=== PATIENT | male | born 1985 | race African-American/Black ===

== ENCOUNTER 2018-04-01 12:14 | Emergency (ER) | payer OTHER ==
[~2018-04-01] VITALS: Ht 182.9 cm; Wt 77.1 kg
[~2018-04-01 12:14] MED LIST: ACYCLOVIR 200200 MG PO; LOTEMAX5 ML OP; NOHOMEMEDICATIONS; PREDNISONE 20 M20 M1 PO; ROBAXIN 750 MG750 M1 PO; ULTRAM 50MG TAB50 MG PO
[2018-04-01 12:57] LABS: ABSOLUTE EOSINOPHILS 0.2 thou/uL (0.0-0.7); ABSOLUTE LYMPHOCYTES 2.2 thou/uL (0.8-5.3); ABSOLUTE MONOCYTES 0.9 thou/uL (0.0-1.2); ABSOLUTE NEUTROPHILS 10.4 thou/uL (1.6-8.1); BASOPHILS 0.4 %; EOSINOPHILS 1.2 %; HEMATOCRIT 36.2 % (42.0-52.0); LYMPHOCYTES 15.9 %; MCH 28.9 pg (26.0-34.0); MCHC 33.1 g/dL (28.0-37.0); MCV 87.2 fL (80.0-100.0); MONOCYTES 6.4 %; MPV 6.3 fl. (7.2-11.1); NUCLEATED RBCS 0 /100WBC; PLATELET COUNT* 286 thou/uL (150-400); POLYS 76.1 %; RBC 4.15 mil/uL (4.50-6.00); RDW-CV 13.4 % (10.5-14.5); WBC 13.6 thou/uL (4.0-11.0)
[2018-04-01] MEDS ORDERED: HYDROCODON-ACE1 EAC7 PO (13:34)
[2018-04-01] MEDS ORDERED: AUGMENTIN 500-1 EACH PO (13:34)
[2018-04-01 13:43] VITALS: BP 134/80
== END 2018-04-01 13:45 | disposition home or self-care (01) ==
LOC: M.ERS 12:14
PROVIDERS: Emergency Medicine
DX: H66.92 Otitis media, unspecified, left ear (principal); J45.909 Unspecified asthma, uncomplicated; F17.210 Nicotine dependence, cigarettes, uncomplicated

== ENCOUNTER 2018-11-25 07:35 | Inpatient (IN) | payer OTHER ==
[~2018-11-25] VITALS: Ht 182.9 cm; Wt 76.2 kg
[~2018-11-25 07:35] MED LIST changes: +AUGMENTIN 500-1 EACH PO; +HYDROCODON-ACE1 EAC7 PO
[2018-11-25 07:39] VITALS: BP 104/60
[2018-11-25] MEDS ORDERED: HIV MED (07:43)
[2018-11-25 08:11] LABS: ABSOLUTE LYMPHOCYTES 1.2 thou/uL (0.8-5.3); ABSOLUTE MONOCYTES 0.7 thou/uL (0.0-1.2); ABSOLUTE NEUTROPHILS 6.6 thou/uL (1.6-8.1); BASOPHILS 0.2 %; EOSINOPHILS 0.2 %; HEMATOCRIT 30.8 % (42.0-52.0); HEMOGLOBIN 10.4 gm/dL (14.0-18.0); LYMPHOCYTES 14.6 %; MCH 28.1 pg (26.0-34.0); MCHC 33.9 g/dL (28.0-37.0); MPV 7.2 fl. (7.2-11.1); NUCLEATED RBCS 0 /100WBC; PLATELET COUNT* 266 thou/uL (150-400); RBC 3.71 mil/uL (4.50-6.00); RDW-CV 14.1 % (10.5-14.5); WBC 8.6 thou/uL (4.0-11.0)
[2018-11-25 08:20] LABS: ANION GAP 12 mmol/L (7-16); BUN 31 mg/dL (7-18); CALCIUM 8.2 mg/dL (8.5-10.1); CHLORIDE 95 mmol/L (98-107); CO2 22 mmol/L (21-32); CREATININE 0.7 mg/dL (0.6-1.3); GLUCOSE 115 mg/dL (70-99); POTASSIUM 4.3 mmol/L (3.5-5.1); SODIUM 129 mmol/L (136-145)
[2018-11-25 08:21] LABS: PROTIME 10.7 Seconds (9.20-11.50)
[2018-11-25 08:30] LABS: ALBUMIN 2.1 g/dL (3.4-5.0); ALKALINE PHOSPHATASE 48 U/L (46-116); LIPASE 178 U/L (73-393); NT-PRO BRAIN NAT PEPTIDE 337 pg/mL (<300); SGOT 15 U/L (15-37); SGPT 13 U/L (30-65); TOTAL BILIRUBIN 0.6 mg/dL (<0.1-1.0); TOTAL PROTEIN 8.4 g/dL (6.4-8.2); TROPONIN-I LEVEL <0.06 ng/mL (<0.06)
[2018-11-25 08:37] LABS: INFLUENZA A ANTIGEN None Detected (None Detect); INFLUENZA B ANTIGEN None Detected (None Detect)
[2018-11-25 09:36] LABS: ANISOCYTOSIS 1+; PLATELET ESTIMATE ADEQUATE; POIKILOCYTOSIS 1+
[2018-11-25 10:35] VITALS: BP 112/64
--- NOTE | 2018-11-25 10:40 | EKG ---
[place] [address] ELECTROCARDIOGRAM REPORT Name: CAROLYN SANDOVAL Room: [place] [address] ADM IN [facility].#: [id number] Admission: 11/25/18 Attend Phys: Hunter Reddy MD Discharge: Date of : 83 Report #: [id number] THIS REPORT FOR: //name// [facility] ED Test Date: 2018-11-25 Test Time: 08:04:17 Pat Name: CAROLYN SANDOVAL Department: Room: [facility] Gender: Specimen Collector: Criselda COOLEY : 1985 Requested By: Eddie Mcrae Order Number: [id number] MD: Jason Chirinos Measurements Intervals [place] Rate: 117 P: 62 MN: 147 QRS: 50 QRSD: 75 T: 53 QT: 279 QTc: 390 Interpretive Statements Sinus tachycardia LVH by voltage ST elev, probable normal early repol pattern No previous ECG available for comparison Electronically Signed On 11-25-2018 10:40:38 NEWSPAPER STUFFER by Jason Chirinos [email or web address] <ELECTRONICALLY SIGNED> By: Jason Chirinos MD, [facility] 11/25/18 1040 0804 0804 Jason Chirinos MD, [facility] /EPI
[2018-11-25 11:10] VITALS: BP 94/40
[2018-11-25 14:18] VITALS: BP 94/54
[2018-11-25 16:00] VITALS: BP 99/59
[2018-11-25 19:40] VITALS: BP 94/41
[2018-11-26] VITALS: BP 102/61
[2018-11-26 04:00] VITALS: BP 109/71
[2018-11-26 08:00] VITALS: BP 104/64
[2018-11-26 08:22] LABS: HEMATOCRIT 27.6 % (42.0-52.0); HEMOGLOBIN 9.3 gm/dL (14.0-18.0); MCHC 33.9 g/dL (28.0-37.0); MCV 82.7 fL (80.0-100.0); MPV 7.2 fl. (7.2-11.1); RBC 3.33 mil/uL (4.50-6.00); RDW-CV 14.3 % (10.5-14.5)
[2018-11-26 08:38] LABS: CALCIUM 8.3 mg/dL (8.5-10.1); CREATININE 1.2 mg/dL (0.6-1.3); MAGNESIUM 1.8 mg/dL (1.8-2.4); POTASSIUM 3.6 mmol/L (3.5-5.1)
[2018-11-26 12:00] VITALS: BP 103/66
[2018-11-26 16:00] VITALS: BP 99/64
[2018-11-26 20:30] VITALS: BP 116/82
[2018-11-26 22:50] LABS: URINE BILIRUBIN NEGATIVE (Negative); URINE BLOOD 1+ (Negative); URINE CLARITY CLEAR; URINE COLOR YELLOW; URINE GLUCOSE-RANDOM NEGATIVE (Negative); URINE KETONES NEGATIVE (Negative); URINE LEUKOCYTES-REFLEX NEGATIVE (Negative); URINE NITRITE-REFLEX NEGATIVE (Negative); URINE PROTEIN TRACE (Negative)
[2018-11-26 23:00] LABS: BACTERIA-REFLEX None Seen /HPF (None Seen); CASTS None Seen /LPF (None Seen); CRYSTALS None Seen /LPF (None Seen); SQUAMOUS 0-3 Few /LPF (0-3); URINE RBC None Seen /HPF (0-2); URINE WBC-REFLEX None Seen /HPF (0-5)
[2018-11-27] VITALS: BP 105/70
[2018-11-27 04:00] VITALS: BP 112/76
[2018-11-27 05:51] LABS: HEMATOCRIT 27.2 % (42.0-52.0); HEMOGLOBIN 8.9 gm/dL (14.0-18.0); MCH 27.2 pg (26.0-34.0); MCHC 32.8 g/dL (28.0-37.0); MCV 82.9 fL (80.0-100.0); MPV 7.6 fl. (7.2-11.1); RBC 3.28 mil/uL (4.50-6.00); RDW-CV 14.6 % (10.5-14.5); WBC 5.6 thou/uL (4.0-11.0)
[2018-11-27 06:04] LABS: MAGNESIUM 1.7 mg/dL (1.8-2.4); POTASSIUM 3.4 mmol/L (3.5-5.1)
[2018-11-27 11:24] VITALS: BP 110/80
[2018-11-27 12:25] VITALS: BP 126/87
[2018-11-27 16:12] VITALS: BP 129/75
[2018-11-27 20:10] VITALS: BP 96/60
[2018-11-28] VITALS (7 sets, daily range): BP systolic 102–118; BP diastolic 61–77
[2018-11-28 05:15] LABS: HEMOGLOBIN 9.7 gm/dL (14.0-18.0); MCH 27.5 pg (26.0-34.0); MCHC 33.3 g/dL (28.0-37.0); MCV 82.5 fL (80.0-100.0); MPV 6.9 fl. (7.2-11.1); RBC 3.51 mil/uL (4.50-6.00); RDW-CV 14.8 % (10.5-14.5); WBC 6.1 thou/uL (4.0-11.0)
[2018-11-28 05:56] LABS: ALBUMIN 1.6 g/dL (3.4-5.0); CALCIUM 8.4 mg/dL (8.5-10.1); CREATININE 1.1 mg/dL (0.6-1.3); MAGNESIUM 1.5 mg/dL (1.8-2.4); POTASSIUM 3.9 mmol/L (3.5-5.1); TOTAL BILIRUBIN 0.3 mg/dL (<0.1-1.0); TOTAL PROTEIN 7.3 g/dL (6.4-8.2)
[2018-11-28] MEDS ORDERED: TRUVADA 133 MG1 EACH PO (08:03)
[2018-11-28] MEDS ORDERED: EPIVIR300 MG PO (08:04)
[2018-11-28 13:05] LABS: HIV-1 PCR log10 4.914 (())
[2018-11-29 04:00] VITALS: BP 121/71
[2018-11-29 05:38] LABS: HEMOGLOBIN 10.1 gm/dL (14.0-18.0); MCH 27.9 pg (26.0-34.0); MCHC 33.7 g/dL (28.0-37.0); MCV 82.7 fL (80.0-100.0); MPV 6.7 fl. (7.2-11.1); RBC 3.63 mil/uL (4.50-6.00); RDW-CV 14.7 % (10.5-14.5); WBC 6.9 thou/uL (4.0-11.0)
[2018-11-29 05:59] LABS: ALBUMIN 1.7 g/dL (3.4-5.0); CALCIUM 8.2 mg/dL (8.5-10.1); CREATININE 1.2 mg/dL (0.6-1.3); MAGNESIUM 1.6 mg/dL (1.8-2.4); TOTAL BILIRUBIN 0.3 mg/dL (<0.1-1.0); TOTAL PROTEIN 7.6 g/dL (6.4-8.2)
[2018-11-29 08:00] VITALS: BP 113/73
[2018-11-29 11:34] VITALS: BP 107/67
--- NOTE | 2018-11-29 14:09 | 2DMMODE ---
[place] [address] 2 D/M-MODE ECHOCARDIOGRAM Name: CAROLYN SANDOVAL Room: [address] IN .R.#: [id number] Admission: 11/25/18 Attend Phys: Hunter Reddy, Discharge: Date of : 83 Date of Service: 11/29/18 1409 Report #: [id number] THIS REPORT FOR: //name// APPROVED REPORT Study performed: 11/29/2018 10:25:33 EXAM: Comprehensive 2D, Doppler, and color-flow Echocardiogram Patient Location: Bedside BSA: 2.00 HR: 81 bpm BP: 121/71 mmHg Other Information Study Quality: Good Indications Chest Pain 2D Dimensions IVSd: 8.05 (7-11mm) LVOT Diam: 18.66 (18-24mm) LVDd: 46.83 mm PWd: 9.61 (7-11mm) Ascending Ao: 27.86 (22-36mm) LVDs: 28.07 (25-40mm) Aortic Root: 30.19 mm Volumes Left Atrial Volume (Systole) LA ESV Index: 12.70 mL/m2 Aortic Valve AoV Peak Billy.: 1.10 m/s AO Peak Gr.: 4.84 mmHg LVOT Max P.73 mmHg AO Mean Gr.: 2.82 mmHg LVOT Mean P.81 mmHg LVOT Max V: 0.97 m/s AO V2 VTI: 18.14 cm LVOT Mean V: 0.62 m/s MARY (VTI): 2.27 cm2 LVOT V1 VTI: 15.04 cm Mitral Valve E/A Ratio: 1.28 MV Decel. Time: 343.94 ms MV E Max Billy.: 0.64 m/s MV PHT: 99.74 ms MVA (PHT): 2.21 [place]2 [place] [address] 2 D/M-MODE ECHOCARDIOGRAM Name: CAROLYN SANDOVAL Room: [address] IN [facility].#: [id number] Admission: 11/25/18 Attend Phys: Hunter Reddy, Discharge: Date of : 83 Date of Service: 11/29/18 1409 Report #: [id number] TDI E/Lateral E': 4.00 E/Medial E': 4.92 Medial E' Billy.: 0.13 m/s Lateral E' Billy.: 0.16 m/s Pulmonary Valve PV Peak Billy.: 0.84 m/s PV Peak Gr.: 2.83 mmHg Left Ventricle The left ventricle is normal size. There is normal LV segmental wall motion. There is normal left ventricular wall thickness. Left ventricular systolic function is normal. The left ventricular ejection fraction is within the normal range. LVEF is 60%. The left ventricular diastolic function is normal. Right Ventricle The right ventricle is normal size. The right ventricular systolic function is normal. Atria The left atrium size is normal. The right atrium size is normal. Aortic Valve The aortic valve is normal in structure. No aortic regurgitation is present. There is no aortic valvular stenosis. Mitral Valve The mitral valve is normal in structure. There is no mitral valve regurgitation noted. No evidence of mitral valve stenosis. Tricuspid Valve The tricuspid valve is normal in structure. There is no tricuspid valve regurgitation noted. Pulmonic Valve The pulmonary valve is normal in structure. There is no pulmonic valvular regurgitation. Great Vessels The aortic root is normal in size. IVC is normal in size and collapses >50% with inspiration. Pericardium There is no peric[place] [address] 2 D/M-MODE ECHOCARDIOGRAM Name: CAROLYN SANDOVAL Room: [address] IN [facility]#: [id number] Admission: 11/25/18 Attend Phys: Hunter Reddy, Discharge: Date of : 83 Date of Service: 11/29/18 1409 Report #: [id number] effusion. <Conclusion> The left ventricle is normal size. There is normal left ventricular wall thickness. Left ventricular systolic function is normal. The left ventricular ejection fraction is within the normal range. LVEF is 60%. The left ventricular diastolic function is normal. The right ventricle is normal size. The left atrium size is normal. The aortic valve is normal in structure. The mitral valve is normal in structure. The tricuspid valve is normal in structure. IVC is normal in size and collapses >50% with inspiration. There is normal LV segmental wall motion. There is no pericardial effusion. <ELECTRONICALLY SIGNED> By: Ryan Stokes MD, FACC 11/29/18 1409 1409 1409 Ryan Stokes MD, FACC /INF
[2018-11-29 15:30] VITALS: BP 103/72
[2018-11-29 20:20] VITALS: BP 124/66
[2018-11-30 00:44] VITALS: BP 130/56
[2018-11-30 04:00] VITALS: BP 119/78
[2018-11-30 05:16] LABS: HEMATOCRIT 30.8 % (42.0-52.0); HEMOGLOBIN 10.3 gm/dL (14.0-18.0); MCH 27.9 pg (26.0-34.0); MCHC 33.6 g/dL (28.0-37.0); MCV 83.1 fL (80.0-100.0); MPV 6.9 fl. (7.2-11.1); RBC 3.7 mil/uL (4.50-6.00); RDW-CV 14.3 % (10.5-14.5); WBC 9.1 thou/uL (4.0-11.0)
[2018-11-30 06:06] LABS: CREATININE 1.2 mg/dL (0.6-1.3); POTASSIUM 4.6 mmol/L (3.5-5.1)
[2018-11-30 08:00] VITALS: BP 121/78
[2018-11-30 11:30] VITALS: BP 116/74
[2018-11-30 15:39] VITALS: BP 148/99
[2018-11-30 20:20] VITALS: BP 130/74
[2018-12-01] VITALS (7 sets, daily range): BP systolic 109–131; BP diastolic 57–86
[2018-12-01] MEDS ORDERED: LEVAQUIN 750 M750 MG PO (09:02)
[2018-12-01] MEDS ORDERED: ACIDOPHILUS1 EAC4 PO (09:02)
[2018-12-01] MEDS ORDERED: HYDROCODON-ACE1 EAC7 PO (09:02)
[2018-12-01] MEDS ORDERED: BENZONATATE100 MG PO (09:02)
--- NOTE | 2018-12-01 13:50 | EKG ---
[place] [address] ELECTROCARDIOGRAM REPORT Name: CAROLYN SANDOVAL Room: [address] ADM IN M.R.#: [id number] Admission: 11/25/18 Attend Phys: Hunter Reddy MD Discharge: Date of : 83 Report #: [id number] THIS REPORT FOR: //name// [facility] Test Date: 2018-11-30 Test Time: 13:58:18 Pat Name: DELIOKRYSTA JOAQUINLUC Department: Room: [address] Gender: M Gas Plant Technician: WAN : 1985 Requested By: Hunter Reddy Order Number: [id number] Reading MD: Jason Chirinos Measurements Intervals [place] Rate: 71 P: 47 LA: 154 QRS: 60 QRSD: 98 T: 52 QT: 395 QTc: 430 Interpretive Statements Sinus rhythm Baseline wander in lead(s) V3 Compared to ECG 11/25/2018 08:04:17 Sinus tachycardia no longer present ST (T wave) deviation no longer present Electronically Signed On 12-01-2018 13:50:16 BLACK TOP SPREADER MACHINE OPERATOR by Jason Chirinos [email or web address] <ELECTRONICALLY SIGNED> By: Jason Chirinos MD, FAC 12/01/18 1350 1358 1358 Jason Chirinos MD, [facility] /EPI
[2018-12-02] VITALS: BP 114/60
[2018-12-02 04:00] VITALS: BP 117/74
[2018-12-02 08:15] VITALS: BP 107/78
[2018-12-02 11:49] VITALS: BP 131/86
--- NOTE | 2018-12-02 12:19 | CON ---
[address] [address] CONSULTATION Name: CAROLYN SANDOVAL Room: [address] ADM IN M.R.#: [id number] Admission: 11/25/18 Attend Phys: Milena Reddy MD Discharge: Date of : 83 Report #: [id number] THIS REPORT FOR: //name// CC: [facility] physician/PCP MILENA Reddy DATE OF SERVICE: 11/29/2018 ATTENDING PHYSICIAN: Milena Reddy MD. He is in room #205. INDICATION FOR CONSULTATION: Left lower lobe infiltrate pneumonia, possible pleural effusion. HISTORY OF PRESENT ILLNESS: The patient is a 33-year-old male who has had previous HIV, not had any immune suppressed infections in the past. He was recently off his HAART and a history of mild asthma, who presented to the Emergency Department on 11/25 with 7-10 days' worth of fever, chills, sweats, cough and sputum production. Fevers were above 39 degrees centigrade associated with myalgias and arthralgias. He did have a sore throat. He had some pain around 3/10 around his left anterior chest wall. He had had pneumonia seen on a chest x-ray and CT scan, really not much pleural effusion. He is having more pleuritic chest pain at this time over the last day or so, although his fever curve is trending downward, and he had what appears to be a [id number] left pleural effusion on chest x-ray this morning. Question is should we sent him up for ultrasound-guided thoracentesis. The patient has an unknown last HIV viral load, thinks his CD4 count was above 400 earlier this year, and again, he is off his HAART for 9 days because of feeling ill. Again, no prior history of recent infections noted. PAST MEDICAL HISTORY: Remote otitis media and pneumonia in the past. Some asthma, which he took inhalers and Symbicort for. ALLERGIES: He has no known medical allergies. OUTPATIENT MEDICATIONS: Included hydrocodone for pain and again albuterol inhaler and possibly Symbicort inhaler. He was not on any antibiotics until he was admitted to the hospital. FAMILY HISTORY: Negative for premature cardiopulmonary disease. SOCIAL HISTORY: Every day smoker, he states 4-5 cigarettes a day. He has also had a history of illicit drug use greater than in the past 3 months[place] [address] CONSULTATION Name: RENYCAROLYN PRADHAN ALEXIS Room: [address]#: [id number] Admission: 11/25/18 Attend Phys: Milena Reddy MD Discharge: Date of : 83 Report #: [id number] alcohol use. He was a part-time missionary I think overseas, but I am not sure which countries he was involved in. I do not know how long he has had positive HIV status. REVIEW OF SYSTEMS: A 14-point review of systems reviewed and negative except for pertinent positives noted in HPI. Denies any constitutional symptoms, any fever, chills, sweats or weight loss at least at this time. He has had some fatigue though and is having chest pain now. PHYSICAL EXAMINATION: GENERAL: This is a pleasant 33-year-old -[place] male in no acute distress. He is lying in bed relatively comfortably when I see him. VITAL SIGNS: Blood pressure is 110/66, heart rate is 88, respirations 16, temperature is 36.8 degrees, saturation on 2 liters 96%. He is 6 feet tall, weight 78 kilograms or 170 pounds, BMI is 23. HEENT: Nares: Pharynx is clear without lesions. No thrush noted. NECK: Supple, without nodes. CHEST: Shows some rhonchi and crackles at the left lung base and also left anterior chest wall, some tenderness with palpation. No rib fractures noted. Right chest is clear. CARDIOVASCULAR: Regular rate and rhythm without murmur, gallop or rub. Heart rate is 88. ABDOMEN: Soft, no hepatosplenomegaly. EXTREMITIES: No cyanosis, clubbing or edema. SKIN: No skin lesions noted. NEUROLOGIC: Grossly intact. LABORATORY DATA: From today 11/29/2018 shows hemoglobin is 10, white count 6900 with a platelet count of 402,000. Sodium is 135, potassium 4.0, carbon dioxide 25, BUN is 9, creatinine 1.2 and a glucose of 85. Magnesium is low at 1.6, calcium is 8.2. LFTs are low and prealbumin is 16.9. Albumin is 1.7. Waiting for a viral load and CD4 counts to come back. Chest x-ray shows more of a consolidation in the left lower lobe, lateral view appears there is some loculated pleural effusion at the left lung base, maybe a 25% of the left lower thorax is occupied by this fluid. No air fluid levels are seen. Cultures are all pending at this time. IMPRESSION: 1. Most likely bacterial pneumonia, left lower lobe, could be strep pneumonia with strep parapneumonic effusion. Need to rule out early empyema in this immune suppressed host. 2. Asthma, not actively bronchospastic. PLAN: Dr. Reddy and I have discussed this also with Dr. Orantes. He has already ordered a left-sided ultrasound thoracentesis, we will see if we can get this done today before the holiday. If there is any [place] [address] CONSULTATION Name: CAROLYN SANDOVAL ALEXIS Room: [address] ADM IN M.R.#: [id number] Admission: 11/25/18 Attend Phys: Milena Reddy MD Discharge: Date of : 83 Report #: [id number] the fluid out, sent off for Gram stain and C and S, AFB smear culture, fungal smear culture as well as cytology that would be advisable. We will give him a few doses of steroids for anti-inflammatory effect and see if it will help out with his pain, and then, he may need a followup chest x-ray and/or CT scan in the next day or two and see how things look. If this is a very thick fluid and more towards an empyema, then he may need transfer to another facility that has a cardiothoracic surgeon and possibly a thoracotomy to clean out the pleural space. Thanks again for allowing us to participate in this man's care. We will follow up along with you while he is in the hospital. <ELECTRONICALLY SIGNED> By: Rukhsana Solitario MD 12/02/18 1219 1215 1025Afaina Estrada MD /clementina
[2018-12-02 12:25] VITALS: BP 116/67
== END 2018-12-02 13:55 | disposition home or self-care (01) | DRG 974 ==
LOC: M.ERS 07:35 → M.2W 08:40 → M.TBA-ER 08:40 → M.2W 10:57
PROVIDERS: Family Medicine; ADMIT Internal Medicine
DX: B20 Human immunodeficiency virus [HIV] disease (principal); A40.9 Streptococcal sepsis, unspecified; E43 Unspecified severe protein-calorie malnutrition; J13 Pneumonia due to Streptococcus pneumoniae; E87.1 Hypo-osmolality and hyponatremia; G93.40 Encephalopathy, unspecified; J45.909 Unspecified asthma, uncomplicated; F17.210 Nicotine dependence, cigarettes, uncomplicated; E87.6 Hypokalemia; E83.42 Hypomagnesemia; Z28.89 Immunization not carried out for other reason; Z79.899 Other long term (current) drug therapy; Z68.22 Body mass index [BMI] 22.0-22.9, adult

== ENCOUNTER 2018-12-07 10:57 | Emergency (ER) | payer OTHER ==
[~2018-12-07] VITALS: Ht 182.9 cm; Wt 70.8 kg
[~2018-12-07 10:57] MED LIST changes: +ACIDOPHILUS1 EAC4 PO; +BENZONATATE100 MG PO; +EPIVIR300 MG PO; +HIV MED; +LEVAQUIN 750 M750 MG PO; +TRUVADA 133 MG1 EACH PO
[2018-12-07 13:23] LABS: ABSOLUTE BASOPHILS 0.1 thou/uL (0.0-0.2); ABSOLUTE EOSINOPHILS 0.1 thou/uL (0.0-0.7); ABSOLUTE LYMPHOCYTES 1.7 thou/uL (0.8-5.3); ABSOLUTE MONOCYTES 0.5 thou/uL (0.0-1.2); ABSOLUTE NEUTROPHILS 1.6 thou/uL (1.6-8.1); EOSINOPHILS 3.7 %; HEMATOCRIT 32.8 % (42.0-52.0); HEMOGLOBIN 10.9 gm/dL (14.0-18.0); LYMPHOCYTES 43.5 %; MCH 27.4 pg (26.0-34.0); MCV 82.8 fL (80.0-100.0); MONOCYTES 11.4 %; MPV 5.9 fl. (7.2-11.1); NUCLEATED RBCS 0 /100WBC; PLATELET COUNT* 392 thou/uL (150-400); POLYS 39.4 %; RBC 3.97 mil/uL (4.50-6.00)
[2018-12-07 13:28] LABS: URINE BILIRUBIN NEGATIVE (Negative); URINE BLOOD TRACE (Negative); URINE CLARITY CLEAR; URINE COLOR YELLOW; URINE GLUCOSE-RANDOM NEGATIVE (Negative); URINE KETONES NEGATIVE (Negative); URINE LEUKOCYTES-REFLEX NEGATIVE (Negative); URINE NITRITE-REFLEX NEGATIVE (Negative); URINE PROTEIN NEGATIVE (Negative); URINE SPECIFIC GRAVITY 1.015 (1.005-1.030); URINE UROBILINOGEN 0.2 E.U./dl (0.2-1.0)
[2018-12-07 13:32] LABS: ANION GAP 6 mmol/L (7-16); BUN 10 mg/dL (7-18); CALCIUM 8.7 mg/dL (8.5-10.1); CHLORIDE 102 mmol/L (98-107); CO2 30 mmol/L (21-32); CREATININE 1.1 mg/dL (0.6-1.3); GLUCOSE 79 mg/dL (70-99); POTASSIUM 4.4 mmol/L (3.5-5.1); SODIUM 138 mmol/L (136-145)
[2018-12-07 13:35] LABS: AMP/METHAMP Negative (Negative); BARBITURATES Negative (Negative); BENZODIAZEPINES Negative (Negative); COCAINE Negative (Negative); METHADONE Negative (Negative); OPIATES POSITIVE (Negative); PCP Negative (Negative); THC Negative (Negative)
[2018-12-07 13:39] LABS: ALBUMIN 2.5 g/dL (3.4-5.0); ALKALINE PHOSPHATASE 79 U/L (46-116); SGOT 29 U/L (15-37); SGPT 42 U/L (30-65); TOTAL BILIRUBIN 0.2 mg/dL (<0.1-1.0); TOTAL PROTEIN 8.4 g/dL (6.4-8.2); TROPONIN-I LEVEL <0.06 ng/mL (<0.06)
[2018-12-07] MEDS ORDERED: ZPAK PO (14:15)
[2018-12-07 14:22] VITALS: BP 117/81
--- NOTE | 2018-12-07 17:03 | EKG ---
[place] [address] ELECTROCARDIOGRAM REPORT Name: CAROLYN SANDOVAL Room: [facility]#: [id number] Admission: 12/07/18 Attend Phys: Discharge: 12/07/18 Date of : 83 Report #: [id number] THIS REPORT FOR: //name// [facility] ED Test Date: 2018-12-07 Test Time: 12:50:08 Pat Name: DELIOKIRALUC SANDOVAL Department: Room: Gender: M Bronzer: Criselda STEPHENS : 1985 Requested By: Gerri Tadeo Order Number: [id number] MD: Cheikh Tapia Measurements Intervals [place] Rate: 87 P: 65 ME: 164 QRS: 51 QRSD: 68 T: 46 QT: 347 QTc: 418 Interpretive Statements Sinus rhythm Probable left atrial enlargement ST elev, probable normal early repol pattern Compared to ECG 11/30/2018 13:58:18 ST (T wave) deviation now present Electronically Signed On 12-07-2018 17:03:25 COIN MACHINE COLLECTOR SUPERVISOR by Cheikh Tapia [email or web address] <ELECTRONICALLY SIGNED> By: Cheikh Tapia MD, FACC 12/07/18 1703 1250 1250 Cheikh Tapia MD, [facility] /EPI
== END 2018-12-07 14:22 | disposition home or self-care (01) ==
LOC: M.ERS 10:57
PROVIDERS: Physician Assistant
DX: R55 Syncope and collapse (principal); J18.9 Pneumonia, unspecified organism; F17.210 Nicotine dependence, cigarettes, uncomplicated; J45.909 Unspecified asthma, uncomplicated; Z21 Asymptomatic human immunodeficiency virus [HIV] infection status

== ENCOUNTER 2019-06-04 17:47 | Emergency (ER) | payer OTHER ==
[~2019-06-04] VITALS: Ht 182.9 cm; Wt 76.2 kg
[~2019-06-04 17:47] MED LIST changes: +ZPAK PO
[2019-06-04 18:50] LABS: HEMATOCRIT 39.4 % (42.0-52.0); HEMOGLOBIN 12.9 gm/dL (14.0-18.0); MCH 27.7 pg (26.0-34.0); MCHC 32.7 g/dL (28.0-37.0); MCV 84.9 fL (80.0-100.0); MPV 7.2 fl. (7.2-11.1); NUCLEATED RBCS 0 /100WBC; PLATELET COUNT* 265 thou/uL (150-400); RBC 4.64 mil/uL (4.50-6.00); RDW-CV 14.4 % (10.5-14.5); WBC 5.1 thou/uL (4.0-11.0)
[2019-06-04 19:02] LABS: ANION GAP 9 mmol/L (7-16); BUN 9 mg/dL (7-18); CALCIUM 9.1 mg/dL (8.5-10.1); CHLORIDE 107 mmol/L (98-107); CO2 28 mmol/L (21-32); CREATININE 1.1 mg/dL (0.6-1.3); GLUCOSE 91 mg/dL (70-99); POTASSIUM 3.7 mmol/L (3.5-5.1); SODIUM 144 mmol/L (136-145)
[2019-06-04 19:12] LABS: ALBUMIN 3.7 g/dL (3.4-5.0); ALKALINE PHOSPHATASE 99 U/L (46-116); SGOT 23 U/L (15-37); SGPT 24 U/L (30-65); TOTAL BILIRUBIN 0.3 mg/dL (<0.1-1.0); TOTAL PROTEIN 9.4 g/dL (6.4-8.2); TROPONIN-I LEVEL <0.06 ng/mL (<0.06)
[2019-06-04 19:13] LABS: ABSOLUTE BASOPHILS 0.1 thou/uL (0.0-0.2); ABSOLUTE EOSINOPHILS 1.3 thou/uL (0.0-0.7); ABSOLUTE MONOCYTES 0.3 thou/uL (0.0-1.2); ABSOLUTE NEUTROPHILS 1.5 thou/uL (1.6-8.1); PLATELET ESTIMATE ADEQUATE
[2019-06-04] MEDS ORDERED: ZPAK PO (19:44)
[2019-06-04] MEDS ORDERED: VENTOLIN HFA 1818 GM INH (19:44)
[2019-06-04] MEDS ORDERED: PREDNISONE 20 M20 M1 PO (19:44)
[2019-06-04 21:28] VITALS: BP 118/71
--- NOTE | 2019-06-06 10:49 | EKG ---
[place] [address] ELECTROCARDIOGRAM REPORT Name: CAROLYN SANDOVAL Room: [facility]#: [id number] Admission: 06/04/19 Attend Phys: Discharge: 06/04/19 Date of : 83 Report #: [id number] THIS REPORT FOR: //name// [facility] ED Test Date: 2019-06-04 Test Time: 18:24:51 Pat Name: CAROLYN SANDOVAL Department: Room: Gender: Mail Officer: NEGRA : 1985 Requested By: Yeison Dawn Order Number: [id number] MD: Jason Chirinos Measurements Intervals [place] Rate: 90 P: 74 PA: 166 QRS: 66 QRSD: 77 T: 64 QT: 349 QTc: 427 Interpretive Statements Sinus rhythm Probable left atrial enlargement Left ventricular hypertrophy Anterior ST elevation, probably due to LVH Baseline wander in lead(s) V2 Compared to ECG 12/07/2018 12:50:08 no change Electronically Signed On 06-06-2019 10:48:53 CDT by Jason Chirinos [email or web address] <ELECTRONICALLY SIGNED> By: Jason Chirinos MD, [facility] 06/06/19 1048 1824 1824 Jason Chirinos MD, [facility] /EPI
== END 2019-06-04 21:29 | disposition home or self-care (01) ==
LOC: M.ERS 17:47
PROVIDERS: Emergency Medicine Emergency Medical Services
DX: J45.901 Unspecified asthma with (acute) exacerbation (principal); F17.210 Nicotine dependence, cigarettes, uncomplicated

== ENCOUNTER 2020-04-02 21:04 | Inpatient (IN) | payer OTHER ==
[~2020-04-02] VITALS: Ht 182.9 cm; Wt 80.7 kg
[~2020-04-02 21:04] MED LIST changes: +VENTOLIN HFA 1818 GM INH
[2020-04-02 21:19] VITALS: BP 141/86
[2020-04-02] MEDS ORDERED: LAMOTRIGINE250 MG PO (21:24)
[2020-04-02] MEDS ORDERED: EPIVIR 150MG T150 M1 PO (21:24)
[2020-04-02] MEDS ORDERED: DIFLUCAN100 MG PO (21:24)
[2020-04-02 21:52] LABS: HEMOGLOBIN 10.9 gm/dL (14.0-18.0); MCHC 32.9 g/dL (28.0-37.0); MCV 85.1 fL (80.0-100.0); MPV 6.7 fl. (7.2-11.1); NUCLEATED RBCS 0 /100WBC; PLATELET COUNT* 382 thou/uL (150-400); RBC 3.88 mil/uL (4.50-6.00); RDW-CV 15.3 % (10.5-14.5); WBC 15.6 thou/uL (4.0-11.0)
[2020-04-02 21:52] LABS: BE -1.4 mmol/L (-2 to +3); PCO2 33.4 mmHg (35.0-45.0); PO2 78.1 mmHg (75.0-100.0); pH 7.439 (7.340-7.450)
[2020-04-02 22:03] LABS: APTT 31.4 Seconds (25.0-31.3); INR 1.1; PROTIME 10.8 Seconds (9.20-11.50)
[2020-04-02 22:06] LABS: ALBUMIN 2.8 g/dL (3.4-5.0); CALCIUM 8.3 mg/dL (8.5-10.1); CREATININE 1.3 mg/dL (0.6-1.3); MAGNESIUM 1.5 mg/dL (1.8-2.4); TOTAL BILIRUBIN 0.5 mg/dL (<0.1-1.0); TOTAL PROTEIN 9.2 g/dL (6.4-8.2)
[2020-04-02 22:10] LABS: ABSOLUTE EOSINOPHILS 0.2 thou/uL (0.0-0.7); ABSOLUTE LYMPHOCYTES 0.9 thou/uL (0.8-5.3); ABSOLUTE MONOCYTES 0.5 thou/uL (0.0-1.2); PLATELET ESTIMATE ADEQUATE
[2020-04-02 23:04] LABS: ESR (SEDRATE) 105 mm/hr (0-15)
[2020-04-03 01:10] VITALS: BP 131/82
[2020-04-03 01:45] VITALS: BP 127/85
--- NOTE | 2020-04-03 05:45 | NUR ---
PT ADMITTED TO FLOOR AT 0130. ASSESSMENTS COMPLETED AT BEDSIDE, PT NOTED PAIN BUT WAS TREATED IN ER WITH PAIN MEDICATION AND DID NOT REQUIRE ANY MORE. PT RECIEVED MEDICATIONS PER MAR. HOURLY ROUNDING COMPLETED FOR SAFETY. PLEASE REFER TO CHARTING FOR ASSESSMENT DETAILS. CURRENTLY IN BED ASLEEP WITH CALL LIGHT WITHIN REACH.
[2020-04-03 07:00] VITALS: BP 112/67
--- NOTE | 2020-04-03 08:50 | NUR ---
INITAL ASSESSMENT COMPLETED CHARTED. VSS. TRACING SR ON MONITOR. PT C/O LLE PAIN, PRN MEDS GIVEN WITH PARTIAL RESULTS. REFER TO COMPUTER CHARTING FOR FURTHER DETAILS. HOURLY ROUNDING IN PLACE, CLWR.
[2020-04-03 12:07] VITALS: BP 103/61
[2020-04-03 12:33] LABS: URINE BILIRUBIN NEGATIVE (Negative); URINE BLOOD 1+ (Negative); URINE CLARITY CLEAR; URINE COLOR YELLOW; URINE GLUCOSE-RANDOM NEGATIVE (Negative); URINE KETONES NEGATIVE (Negative); URINE LEUKOCYTES-REFLEX NEGATIVE (Negative); URINE NITRITE-REFLEX NEGATIVE (Negative); URINE PROTEIN TRACE (Negative); URINE SPECIFIC GRAVITY 1.015 (1.005-1.030); URINE UROBILINOGEN 0.2 E.U./dl (0.2-1.0)
[2020-04-03 12:41] LABS: BACTERIA-REFLEX 1-9 Few /HPF (None Seen); CASTS None Seen /LPF (None Seen); CRYSTALS None Seen /LPF (None Seen); MUCUS 0-3 Light strn/LPF (None Seen); SQUAMOUS 0-3 Few /LPF (0-3); URINE RBC 0-2 Rare /HPF (0-2); URINE WBC-REFLEX 0-5 Rare /HPF (0-5)
[2020-04-03 16:18] VITALS: BP 112/58
--- NOTE | 2020-04-03 16:22 | NUR ---
PT.RESIDE AT HOME. IS INDPENDENT AND DOES NOT USE ANY DME. HUMAN ARC TO SCREEN FOR MEDICAID HE DOES NOT HAVE INSURANCE. SHOULD NOT HAVE DISCHARGE NEEDS.
[2020-04-03 20:00] VITALS: BP 111/67
[2020-04-04 00:05] VITALS: BP 111/69
[2020-04-04 02:07] LABS: GLYCOHEMOGLOBIN (HGB A1C) 5.8 % (4.8-5.6)
[2020-04-04 04:19] VITALS: BP 128/74
[2020-04-04 05:34] LABS: HEMATOCRIT 30.8 % (42.0-52.0); HEMOGLOBIN 10.2 gm/dL (14.0-18.0); MCH 28.1 pg (26.0-34.0); MCHC 33.2 g/dL (28.0-37.0); MCV 84.5 fL (80.0-100.0); MPV 6.5 fl. (7.2-11.1); RBC 3.65 mil/uL (4.50-6.00); RDW-CV 15.6 % (10.5-14.5); WBC 7.6 thou/uL (4.0-11.0)
--- NOTE | 2020-04-04 05:52 | NUR ---
ASSESSMENTS COMPLETED AT BEDSIDE, PLEASE REFER TO CHARTING FOR DETAILS. MEDICATIONS ADMINISTERED PER MAR. PT HAD C/O PAIN OF 10/10 REQUIRING PRN PAIN MEDICATION. PT ATTEMPTED TO STANDTHIS SHIFT AND IS UNABLE TO ON HIS OWN, PT REQUIRES 1-2 ASSIST WHEN STANDING AND IS UNABLE TO AMBULATE WITH THE PAIN IN HIS LEFT LEG. PLACED PT ON HIGH FALL RISK, PLACED IN YELLOW SOCKS, YELLOW ARM BAND AND BED ALARM ON WITH CALL LIGHT WITHIN REACH.
[2020-04-04 05:58] LABS: ALBUMIN 2.1 g/dL (3.4-5.0); CALCIUM 7.9 mg/dL (8.5-10.1); CREATININE 1.3 mg/dL (0.6-1.3); MAGNESIUM 1.6 mg/dL (1.8-2.4); TOTAL BILIRUBIN 0.4 mg/dL (<0.1-1.0)
[2020-04-04 08:00] VITALS: BP 105/66
--- NOTE | 2020-04-04 11:30 | CON ---
[address] [address] CONSULTATION Name: CAROLYN SANDOVAL Room: [address] IN M.R.#: [id number] Admission: 04/03/20 Attend Phys: Cecy Oswald Discharge: Date of : 83 Report #: [id number] THIS REPORT FOR: //name// cc: ZOË Nieves No family physician/PCP ZOË - No family physician/PCP ~ THIS REPORT FOR: //name// CC: [facility] physician/PCP Marc Briggs DATE OF SERVICE: 04/03/2020 INFECTIOUS DISEASE CONSULTATION ATTENDING PHYSICIAN: Dr. Briggs. REASON FOR EVALUATION: Left lower extremity inflammatory eruption, likely component of cellulitis and also pneumonitis. HISTORY OF PRESENT ILLNESS: Chart reviewed, patient examined. This is a 35-year-old man with known HIV disease, presented with a roughly 1-week history of progressive left lower extremity pain. He denied any antecedent injury. He noted associated swelling, redness, and increased temperature. He has not had previous issues with lower extremity. Right lower extremity did have a DVT roughly a year ago. Imaging studies with Doppler shows no evidence of DVT. Chest x-ray did show question of a mild left basilar pneumonitis versus atelectasis. ABGs: pH 7.439 with a pO2 of 78.1 on room air. In terms of the pertinent history, he has known HIV. He reports he has been taking a combination therapy lamivudine, tenofovir, and darunavir, he believes. He notes he was released from group home in a latter part of January. He believes his CD4 count was in the 400s with a viral load that was detectable, although low numbers. He reports taking his medicines as prescribed. He additionally notes his appetite has been reasonably good. His weight has been stable. He does admit to some dyspnea which he can explain and has occasional cough. He states he has been working on a house. He has no evidence of coronavirus exposure that he is aware of. He started empirically on therapy with piperacillin, tazobactam, levofloxacin, and fluconazole. ALLERGIES: None known. MEDICATIONS: Enoxaparin. He is on insulin sliding scale, p.r.n. analgesics, antiemetics, famotidine, fluconazole, levofloxacin, and Zosyn. PAST MEDICAL HISTORY: Above noted HIV, also history of asthma, and previous history of [place] [address] CONSULTATION Name: CAROLYN SANDOVAL Room: [address]#: [id number] Admission: 04/03/20 Attend Phys: Cecy Oswald Discharge: Date of : 83 Report #: [id number] SOCIAL HISTORY: Smokes cigarettes. No illicit drug use. No ethanol use. FAMILY HISTORY: Otherwise, unremarkable. REVIEW OF SYSTEMS: As above. PHYSICAL EXAMINATION: GENERAL: He is in moderate distress secondary to his leg pain. He is lucid. He responds appropriately. He appears to be reasonably well nourished. VITAL SIGNS: Temperature 98.9, pulse 96, respirations 16, and blood pressure 112/67. SKIN: Warm and dry. No rashes. HEENT: Normocephalic. Extraocular muscles intact. NECK: Supple. LUNGS: Diminished breath sounds, maybe some basilar crackles, I do not hear any wheezes. HEART: Regular. I do not appreciate a murmur. ABDOMEN: Soft, nontender, and nondistended. EXTREMITIES: Left lower extremity is exquisitely tender to touch. There is clearly erythema. It is warm to touch and swollen as well. There are no bullous lesions, no ulcerations. GENITOURINARY AND RECTAL: Deferred. LABORATORY DATA: Blood cultures were sterile thus far. Prealbumin of 14.5. Lactic acid 1.4. Glucose of 103 on Accu-Chek, it was 344 on admission. Initial ABG: pH 7.439, pCO2 of 33.4, and pO2 of 78.1 on room air. Chest x-ray: Mild left basilar atelectasis or pneumonitis. CRP of 59.8. Protime 10.8 and INR of 1.1. Lactic acid 2.3 initially. Electrolytes: Sodium 130, potassium 4.0, chloride 100, bicarbonate is 26, anion gap of 8, and BUN and creatinine 19 and 1.3. LFTs unremarkable. Albumin of 2.8 and total protein of 9.2. White count of 15.6, hemoglobin 10.9, hematocrit 33.0, and platelets of 382. Sed rate is elevated at 105. ASSESSMENT AND PLAN: Left lower extremity inflammatory eruption, likely component of skin and soft tissue infection with cellulitis. Secondly, he has early pneumonitis. The patient with HIV, it is not clear that he has got a significant immunosuppression and he was in group home, so it is difficult to ascertain. He states he has been taking his medicines since he has been out at least. We will recheck some of these studies and I can explain his markedly elevated sed rate. I will expectantly await COVID testing. <ELECTRONICALLY SIGNED> By: Adarsh Orantes MD 04/04/20 1130 1114 1149Josemike Orantes MD /clementina
[2020-04-04 12:10] VITALS: BP 118/76
--- NOTE | 2020-04-04 12:13 | NUR ---
ASSUMED CARE OF PATIENT THIS AM AT 0730. PATIENT IS ALERT AND ORIENTED X 4. HE C/O PAIN IN HIS RIGHT LEG. RIGHT LEG CONTINUES SWOLLEN AND RED. PATIENT MEDICATED FOR C/O PAIN. HE STATED PAIN MEDICATION WAS ONLY PARTIALLY EFFECTIVE. DR NOTIFIED. PATIENT STARTED ON MUSCLE RELAXERS ALSO. IV ANTIBIOTICS INFUSED PER ORDER. PATIENT ASSISTED WITH ADLS THROUGHOUT THE DAY. TELE SHOWS NSR. WILL CONTINUE TO MONITOR VS AND ASSESSMENTS. NO FALLS OR INJURY.
[2020-04-04 16:14] VITALS: BP 113/70
--- NOTE | 2020-04-04 16:32 | NUR ---
PER MISHEL/YULISA, PT.DOES NOT QUALIFY FOR [place] MEDICAID NOR IS CONSIDERED DISABLED WITH HIS DX.
[2020-04-04 20:00] VITALS: BP 118/70
[2020-04-05] VITALS: BP 135/77
[2020-04-05 04:00] VITALS: BP 124/68
[2020-04-05 05:33] LABS: ABSOLUTE EOSINOPHILS 0.3 thou/uL (0.0-0.7); ABSOLUTE LYMPHOCYTES 1.6 thou/uL (0.8-5.3); ABSOLUTE MONOCYTES 0.5 thou/uL (0.0-1.2); ABSOLUTE NEUTROPHILS 4.4 thou/uL (1.6-8.1); BASOPHILS 0.4 %; EOSINOPHILS 3.8 %; HEMATOCRIT 28.7 % (42.0-52.0); HEMOGLOBIN 9.6 gm/dL (14.0-18.0); LYMPHOCYTES 24.2 %; MCH 28.4 pg (26.0-34.0); MCHC 33.5 g/dL (28.0-37.0); MCV 84.6 fL (80.0-100.0); MONOCYTES 6.7 %; MPV 6.4 fl. (7.2-11.1); NUCLEATED RBCS 0 /100WBC; PLATELET COUNT* 391 thou/uL (150-400); POLYS 64.9 %; RBC 3.39 mil/uL (4.50-6.00); RDW-CV 15.5 % (10.5-14.5); WBC 6.8 thou/uL (4.0-11.0)
--- NOTE | 2020-04-05 05:59 | NUR ---
PATIENT SLEPT MOST OF THE NIGHT. IV FLUIDS AND VANC CONTINUE TO INFUSE ORDERED. PATIENT WAS GIVEN PAIN MEDICINE ONCE FOR PAIN. WILL CONTINUE TO MONITOR.
[2020-04-05 07:00] VITALS: BP 111/70
--- NOTE | 2020-04-05 07:47 | NUR ---
INITAL ASSESSMENT COMPLETED CHARTED. VSS. TRACING SR ON MONITOR. PT C/O PAIN IN LEFT LEG. NO OTHER CONCERNS AT THIS TIME. REFER TO COMPUTER CHARTING FOR FURTHER DETAILS. HOURLY ROUNDING IN PLACE FOR PT SAFETY. CLWR.
[2020-04-05 15:08] LABS: GLOBULIN TOTAL 4.2 g/dL (2.2-3.9); M-SPIKE Not Observed g/dL (Not Observed)
[2020-04-05 16:12] VITALS: BP 119/78
--- NOTE | 2020-04-05 16:22 | NUR ---
SW called and spoke with pt about mt planning and needs for resuming HIV treatment. Pt says he plans to return to [place] at mt. Pt had been living in [place] and then was in [place] [facility] until January and when he tried to reconnect with his moth proofer, he was told he had a different moth proofer but has been having difficulty with reaching anyone. SW explained SW knew of [facility] program but pt said that he has to go through [facility]. Pt says that he has numbers to call. SW said that SW would attempt to call as well but pt does have the numbers he needs to continue towards reestablishing with programs for continued treatment.
[2020-04-05 19:56] VITALS: BP 119/78
[2020-04-05 20:30] VITALS: BP 140/85
--- NOTE | 2020-04-05 22:20 | NUR ---
PATIENT WAS MADE MEDSURGE STATUS TODAY. PATIENT HAD A TEMP OF 101 AT 2030 TYLENOL WAS GIVEN. REPORT WAS GIVEN TO [place] [place]. PATIENT WAS SENT WITH ALL HIS BELONGINGS DOWN TO 116. WILL CONTINUE TO MONITOR.
--- NOTE | 2020-04-06 03:06 | NUR ---
PATIENT TRANSFERRED FROM TELEMETRY TO ROOM 116 AT APPROXIMATELY 2200. VSS ON RA. VITAL SIGNS TAKEN BEFORE COMING DOWN BY TELEMETRY NURSE/COLLECTION TEAM LEAD. NO C/O PAIN. IV IN LEFT AC-NS @ 100ML/HR INFUSING. PATIENT IS PLEASANT AND COOPERATIVE AND IS RESTING COMFORTABLY IN ROOM. REPORT GIVEN FROM TELEMETRY NURSE. PATIENT INSTRUCTED TO USE CALL LIGHT WHEN NEEDING ASSISTANCE. HOURLY ROUNDS TO BE MADE. WILL CONTINUE TO MONITOR.
--- NOTE | 2020-04-06 06:00 | NUR ---
PATIENT HAS SLEPT WELL THROUGHOUT THE NIGHT SINCE BEING ADMITTED TO THE UNIT. NO C/O PAIN. PATIENT IS UP AD-JANEE AND STEADY. IV IN LEFT AC-NS @ 100ML/HR. IV ABT GIVEN WITHOUT ANY ADVERSE SIDE EFFECTS NOTED. PATIENT INSTRUCTED TO USE CALL LIGHT WHEN NEEDING ASSISTANCE. HOURLY ROUNDS MADE. WILL CONTINUE WITH PLAN OF CARE AND NURSING TO MONITOR.
[2020-04-06 08:07] VITALS: BP 127/82
--- NOTE | 2020-04-06 15:12 | NUR ---
ASSUMED CARE OF THE PT @ 0700. PT IS A/O X4. C/O LT LEG PAIN. PO PAIN MEDS GIVE. PT CONTINUES ON IV ABT FOR PNEUMONIA. TOLERATING WELL. LOW GRADE TEMP 99. IV PATENT IN LT AC. PT IS ON RA. LUNGS CLEAR IN UPPER LOBES. FINE CRACKLES IN BASES. PT UP AD JANEE WITH BRP. SEEN BY DR MEEKS /ID. NO NEW ORDERS. LT LEG SWELLING NOTED.TOLERATING DEIT. APPETITE GOOD. LOWER BLOOD SUGARS 80-60S. NO INSULINS GIVEN. RESTING QUIETLY IN BED AT THIS TIME WITH THE CALL LIGHT IN REACH. BED LOW AND LOCKED. VOIDING PER URINAL. WILL CONTINUE TO MONITOR.
[2020-04-06 16:00] VITALS: BP 117/79
[2020-04-06 17:10] VITALS: BP 127/82
--- NOTE | 2020-04-06 17:13 | NUR ---
RECEIVED MESSAGE THAT MELVIN GOVEA IS PTS NEW MACHINE HEEL SEAT LASTER AT [facility]. NUMBER FOR [facility] IS [phone]. CALLED NUMBER BUT HAD TO LEAVE A VN FOR MACHINE HEEL SEAT LASTER. DID NOT GIVE PTS NAME, JUST TO RETURN THIS CM CALL. INFORMATION PUT IN DISCHARGE INSTRUCTIONS.
[2020-04-06 19:20] VITALS: BP 121/82
[2020-04-07 03:41] LABS: HEMOGLOBIN 10.4 gm/dL (14.0-18.0); MCH 28.5 pg (26.0-34.0); MCHC 33.5 g/dL (28.0-37.0); MCV 84.9 fL (80.0-100.0); MPV 6.2 fl. (7.2-11.1); NUCLEATED RBCS 0 /100WBC; PLATELET COUNT* 429 thou/uL (150-400); RBC 3.65 mil/uL (4.50-6.00); RDW-CV 15.3 % (10.5-14.5); WBC 4.3 thou/uL (4.0-11.0)
--- NOTE | 2020-04-07 04:25 | NUR ---
ASSUMED CARE OF PT 04/06/20 AT APPROX 1930. PT A&OX4, ON ROOM AIR, VSS, IV FLUIDS INFUSING ORDERED, BLADDER SCAN COMPLETED Q6H ORDERED - RESIDUAL URINE <200 ML. NO C/O PAIN THIS SHIFT. DIARRHEA NOTED, PANCRELIPASE STARTED APPROX 1800. ASSESSMENTS AND HOURLY ROUNDINGS COMPLETED. WILL CONTINUE TO MONITOR.
--- NOTE | 2020-04-07 04:34 | NUR ---
ASSUMED CARE OF PT 04/06/20 AT APPROX 1930. PT A&OX4, ON ROOM AIR, VSS, IV FLUIDINGS INFUSING ORDERED. PAIN MEDS REQUESTED AND GIVEN ORDERED. ASSESSMENTS AND HOURLY ROUNDINGS COMPLETE. WILL CONTINUE TO MONITOR.
[2020-04-07 05:20] LABS: ESR (SEDRATE) 118 mm/hr (0-15)
[2020-04-07 05:45] LABS: ABSOLUTE EOSINOPHILS 0.3 thou/uL (0.0-0.7); ABSOLUTE LYMPHOCYTES 1.7 thou/uL (0.8-5.3); ABSOLUTE MONOCYTES 0.3 thou/uL (0.0-1.2); ATYPICAL LYMPHS 1 %; PLATELET ESTIMATE ADEQUATE
[2020-04-07 07:30] VITALS: BP 128/83
[2020-04-07 16:00] VITALS: BP 130/86
--- NOTE | 2020-04-07 17:16 | NUR ---
ASSUMED CARE OF PATIENT AT APPROX 0730. ALERT AND ORIENTED X4. ASSESSMENT COMPLETED AND CHARTED. VSS ON ROOM AIR. PAIN MANAGAED WITH ORAL PAIN MEDICATION. FLUIDS AND ANTIBIOTICS INFUSED ORDERED. PATIENT UP STAND BY ASSIST TO THE BATHROOM. NO OTHER COMPLAINTS THIS SHIFT. CALL LIGHT WITHIN REACH. HOURLY ROUNDS COMPLETED. WILL CONTINUE WITH PLAN OF CARE.
[2020-04-07 20:00] VITALS: BP 133/82
[2020-04-07 23:40] VITALS: BP 122/71
[2020-04-08 04:00] VITALS: BP 128/75
--- NOTE | 2020-04-08 06:02 | NUR ---
Alert and oriented x 4. He has been up independently to the bathroom. He is voiding well. His L leg is edemedous and warm to touch,he has tubigrip stocknett on his L lower leg and covers foot also. It was painful to him even when I was feeling for a pedal pulse. He has requested pain meds x 2 this shift. His blood sugar was slightly low last evening. He has had snacks x 2 this shift. He has slept well.
[2020-04-08 07:40] VITALS: BP 111/75
--- NOTE | 2020-04-08 18:10 | NUR ---
ASSUMED CARE OF PATIENT AT APPROX 0730. ALERT AND ORIENTED X4. ASSESSMENT COMPLETED AND CHARTED. VSS ON ROOM AIR. PATIENT HAS COMPLAINT OF PAIN ON LLE, MANAGED WITH ORAL NORCO AND IBUPROFEN. TUBIGRIP IN PLACE ON LLE, ELEVATED ON PILLOWS AND ICE PACKS PRN. PATIENT UP AD JANEE AND SHOWERED TODAY, LINENS CHANGED TODAY. FLUIDS AND ANTIBIOTICS INFUSED ORDERED. NO OTHER COMPLAINTS THIS SHIFT. CALL LIGHT WITHIN REACH. HOURLY ROUNDS COMPLETED. WILL CONTINUE WITH PLAN OF CARE.
[2020-04-08 21:00] VITALS: BP 128/84
[2020-04-08 23:45] VITALS: BP 125/82
--- NOTE | 2020-04-09 05:26 | NUR ---
Oriented x 4 but drowsy this shift. He did have a shower at the start of the shift. He did also say that he had a BM yesterday on hi. Vitals have been stable, he did have a slight temp x 1. LLE is edemedous,warm,with tubigrip stockenett in place. It is elevated on a pillow. He is sleeping well this shift.
[2020-04-09 06:15] VITALS: BP 158/82
--- NOTE | 2020-04-09 11:14 | NUR ---
PT TRNASFERRED TO ROOM 230 AT 0800 THIS AM.
[2020-04-09 12:28] LABS: HEMATOCRIT 31.7 % (42.0-52.0); HEMOGLOBIN 10.6 gm/dL (14.0-18.0); MCH 28.3 pg (26.0-34.0); MCHC 33.4 g/dL (28.0-37.0); MCV 84.7 fL (80.0-100.0); MPV 5.9 fl. (7.2-11.1); RBC 3.74 mil/uL (4.50-6.00); RDW-CV 15.5 % (10.5-14.5); WBC 3.7 thou/uL (4.0-11.0)
[2020-04-09] MEDS ORDERED: MINOCYCLINE HC100 M2 PO (12:48)
[2020-04-09] MEDS ORDERED: LEVAQUIN 750 M750 MG PO (12:48)
[2020-04-09 13:38] VITALS: BP 127/82
--- NOTE | 2020-04-09 13:54 | NUR ---
DISCONTIUE IV AND PATIENT WILL DISACHARGE TO HOME. PT UNDERSTANDS ALL FOLLOW UP ORDERS.
[2020-04-09 14:51] LABS: ALBUMIN 2.1 g/dL (3.4-5.0); CALCIUM 8.1 mg/dL (8.5-10.1); CREATININE 1.2 mg/dL (0.6-1.3); POTASSIUM 4.4 mmol/L (3.5-5.1); TOTAL BILIRUBIN 0.2 mg/dL (<0.1-1.0); TOTAL PROTEIN 8.6 g/dL (6.4-8.2)
== END 2020-04-09 14:16 | disposition home or self-care (01) | DRG 602 ==
LOC: M.ERS 21:04 → M.TBA-ER 04-03 00:30 → M.2W 04-03 00:30 → M.ORTHSURG 04-05 22:11 → M.2W 04-09 08:25
PROVIDERS: Family Medicine; Internal Medicine; Personal Emergency Response Attendant; Specialist; ADMIT Internal Medicine
DX: L03.116 Cellulitis of left lower limb (principal); J18.9 Pneumonia, unspecified organism; J45.909 Unspecified asthma, uncomplicated; R73.03 Prediabetes; F17.210 Nicotine dependence, cigarettes, uncomplicated; Z21 Asymptomatic human immunodeficiency virus [HIV] infection status; Z20.828 Contact with and (suspected) exposure to other viral communicable diseases; Z79.899 Other long term (current) drug therapy; Z86.718 Personal history of other venous thrombosis and embolism

== ENCOUNTER 2020-11-24 11:04 | Emergency (ER) | payer OTHER ==
[~2020-11-24] VITALS: Ht 182.9 cm; Wt 79.4 kg
[~2020-11-24 11:04] MED LIST changes: +DIFLUCAN100 MG PO; +EPIVIR 150MG T150 M1 PO; +LAMOTRIGINE250 MG PO; +MINOCYCLINE HC100 M2 PO
[2020-11-24 11:15] VITALS: BP 132/44
[2020-11-24] MEDS ORDERED: BACTRIM DS TAB1 EACH PO (11:36)
[2020-11-24] MEDS ORDERED: KEFLEX500 M1 PO (11:36)
[2020-11-24] MEDS ORDERED: NORCO 5-325 TA1 EAC2 PO (11:36)
== END 2020-11-24 11:45 | disposition home or self-care (01) ==
LOC: M.ERS 11:04
DX: S81.801A Unspecified open wound, right lower leg, initial encounter (principal); J45.909 Unspecified asthma, uncomplicated; F17.210 Nicotine dependence, cigarettes, uncomplicated; Z86.14 Personal history of Methicillin resistant Staphylococcus aureus infection; Z79.899 Other long term (current) drug therapy; X58.XXXA Exposure to other specified factors, initial encounter; Y93.89 Activity, other specified; Y92.89 Other specified places as the place of occurrence of the external cause; Y99.8 Other external cause status

== ENCOUNTER 2021-10-27 14:36 | Emergency (ER) | payer OTHER ==
[~2021-10-27] VITALS: Ht 182.9 cm; Wt 79.4 kg
[~2021-10-27 14:36] MED LIST changes: +BACTRIM DS TAB1 EACH PO; +KEFLEX500 M1 PO; +NORCO 5-325 TA1 EAC2 PO
[2021-10-27 16:20] LABS: HEMATOCRIT 33.4 % (42.0-52.0); HEMOGLOBIN 10.8 gm/dL (14.0-18.0); MCH 26.6 pg (26.0-34.0); MCHC 32.4 g/dL (28.0-37.0); MCV 82.1 fL (80.0-100.0); MPV 6.4 fl. (7.2-11.1); NUCLEATED RBCS 0 /100WBC; PLATELET COUNT* 321 thou/uL (150-400); RBC 4.06 mil/uL (4.50-6.00); RDW-CV 14.8 % (10.5-14.5); WBC 3.7 thou/uL (4.0-11.0)
[2021-10-27 16:29] LABS: CALCIUM 8.4 mg/dL (8.5-10.1); CREATININE 1.4 mg/dL (0.6-1.3); POTASSIUM 3.9 mmol/L (3.5-5.1)
[2021-10-27 16:34] LABS: ALBUMIN 2.1 g/dL (3.4-5.0); TOTAL BILIRUBIN 0.2 mg/dL (<0.1-1.0); TOTAL PROTEIN 11.5 g/dL (6.4-8.2)
[2021-10-27 17:06] LABS: ABSOLUTE EOSINOPHILS 0.4 thou/uL (0.0-0.7); ABSOLUTE LYMPHOCYTES 1.2 thou/uL (0.8-5.3); ABSOLUTE MONOCYTES 0.3 thou/uL (0.0-1.2); ABSOLUTE NEUTROPHILS 1.8 thou/uL (1.6-8.1)
[2021-10-27 17:07] LABS: ANISOCYTOSIS Occasional; PLATELET ESTIMATE ADEQUATE
[2021-10-27] MEDS ORDERED: CEPHALEXIN500 MG PO (17:36)
[2021-10-27] MEDS ORDERED: BACTRIM DS TAB1 EAC1 PO (17:36)
[2021-10-27] MEDS ORDERED: CENTANY30 GM TOP (17:37)
[2021-10-27 17:51] VITALS: BP 137/93
== END 2021-10-27 17:51 | disposition home or self-care (01) ==
LOC: M.ERS 14:36
PROVIDERS: Physician Assistant
DX: L03.115 Cellulitis of right lower limb (principal); D72.819 Decreased white blood cell count, unspecified; J45.909 Unspecified asthma, uncomplicated; F17.210 Nicotine dependence, cigarettes, uncomplicated; Z21 Asymptomatic human immunodeficiency virus [HIV] infection status